=== PATIENT | male | born 1975 | race Caucasian/White ===

== ENCOUNTER 2018-05-27 20:34 | Inpatient (IN) | payer OTHER ==
[2018-05-28 07:44] VITALS: BP 147/87
[2018-05-28 13:35] LABS: BASOPHIL (%) 0.5 % (0-1); EOSINOPHIL (%) 0.2 % (0-5); HEMATOCRIT 45.2 % (38.0-50.0); HEMOGLOBIN 15.7 G/DL (12.5-16.6); IMMATURE GRANULOCYTE (%) 0.3 % (0.0-0.7); LYMPHOCYTE (%) 19.7 % (15-42); LYMPHOCYTE COUNT 1.3 K/uL (1.0-2.8); MCH 29.8 PG (29.0-34.0); MCHC 34.7 G/DL (30.0-36.0); MCV 85.9 FL (86-99); MONOCYTE (%) 7.3 % (3-12); MONOCYTE COUNT 0.5 K/uL (0-0.8); NEUTROPHIL COUNT 4.8 K/uL (1.8-6.4); PLATELET COUNT 160 K/uL (156-360); RBC DIS.WIDTH-CV 12.6 % (11.8-14.6); RED BLOOD COUNT 5.26 M/uL (4.00-5.50); WHITE BLOOD COUNT 6.6 K/uL (4.1-10.2)
[2018-05-28 14:02] LABS: ALBUMIN 4.6 G/DL (3.2-4.8); ALKALINE PHOSPHATASE 74 IU/L (3-129); ALT (GPT) 25 IU/L (3-49); AST (GOT) 17 IU/L (2-34); CHLORIDE 105 MEQ/L (99-109); GFR ESTIMATE (CALCULATED) > 59 mL/min/ (58.99-99999); GLUCOSE 129 mg/dL (70-99); POTASSIUM 4.5 MEQ/L (3.7-5.4); SODIUM 142 MEQ/L (136-147); TOTAL BILIRUBIN 0.5 MG/DL (0.0-1.0); TOTAL PROTEIN 6.7 G/DL (6.4-8.3); UREA NITROGEN (BUN) 14 mg/dL (9-23)
[2018-05-28 14:15] LABS: THYROTROPIN (TSH) 1.7 MIU/L (0.4-5.5)
[2018-05-28 14:24] LABS: FOLIC ACID (FOLATE) 10.2 NG/ML (5.0-22.0)
[2018-05-28 16:16] VITALS: BP 143/89
[2018-05-28] MEDS ORDERED: CLOZAPINE ODT200 MG PO (20:33)
[2018-05-28] MEDS ORDERED: CLOZARIL100 MG PO (20:34)
[2018-05-28] MEDS ORDERED: CLOZAPINE ODT150 MG PO (20:35)
[2018-05-28] MEDS ORDERED: ATARAX10 MG PO (20:38)
[2018-05-28] MEDS ORDERED: RISPERDAL3 MG PO (20:40)
[2018-05-28] MEDS ORDERED: ATIVAN1 MG PO (20:41)
[2018-05-29 08:03] VITALS: BP 112/84
[2018-05-29 16:22] VITALS: BP 134/80
[2018-05-30 07:43] VITALS: BP 108/65
[2018-05-30 16:22] VITALS: BP 137/76
[2018-05-31 07:51] VITALS: BP 109/71
[2018-05-31 16:28] VITALS: BP 108/65
[2018-06-01 07:54] VITALS: BP 125/74
[2018-06-01 16:12] VITALS: BP 120/99
[2018-06-02 07:47] VITALS: BP 116/70
[2018-06-02 16:53] VITALS: BP 122/84
[2018-06-03 08:00] VITALS: BP 119/70
[2018-06-03 16:08] VITALS: BP 131/100
[2018-06-04 08:02] VITALS: BP 104/64
== END 2018-06-04 11:56 | disposition home or self-care (01) | DRG 885 ==
LOC: 1WEST 20:34 → ENRESERV 21:31 → 1WEST 22:59
PROVIDERS: Psychiatry & Neurology Psychiatry
DX: F20.9 Schizophrenia, unspecified (principal); R21 Rash and other nonspecific skin eruption; F41.9 Anxiety disorder, unspecified; F22 Delusional disorders; Z79.899 Other long term (current) drug therapy
CPT/HCPCS: 80053; 82607; 82746; 84443; 85025; 97150 GO; 97165 GO